=== PATIENT | female | born 1980 | race Caucasian/White ===

== ENCOUNTER 2017-05-30 19:26 | Emergency (ER) | payer SELFPAY ==
[2017-05-30 19:37] VITALS: BP 133/93; PULSE 72; TEMP 98; BMI 34.9
[2017-05-30] MEDS ORDERED: KETOROLAC TROMETHAMINE 15 MG/ML VIAL IM ONE (19:46)
[2017-05-30] MEDS ORDERED: KETOROLAC TROMETHAMINE 15 MG/ML VIAL ONE (19:50)
--- NOTE | 2017-05-30 19:53 | PDOC ---
History of Present Illness - General Chief Complaint: Pain, Acute Stated Complaint: HEADACHE X 3 DAYS Time Seen by Provider: 05/30/17 19:31 - History of Present Illness Initial Comments: 05/30/17 19:54 "Patient is a 36 F, who is otherwise healthy, and presents with headache for 3 days. Patient states that she has had a frontal headache for the past 3 days, rates consistent 5/10 of intensity. She states that her nasal congestion began first, following by a headache. She denies neck stiffness. Denies fevers. Denies thunderclap headache. Denies weakness/numbness/tingling in any extremity. Denies N/V. Denies worst headache of life. Last night she developed a dry cough and a sore throat which she attributes to sleeping with her mouth open. She also notes some right ear pain. 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 She states that she took Tylenol for sinus relief with temporary relief. Denies changes in vision. Denies dizziness, lightheadedness, and chest pain. No recent travel. " Past History - Past Medical History Allergies/Adverse Reactions: Allergies Allergy/AdvReac Type Severity Reaction Status Date / Time No Known Allergies Allergy Verified 05/30/17 19:28 Home Medications: Ambulatory Orders Amoxicillin/Potassium Clav [Augmentin 875-125 Tablet] 1 each PO BID #14 tablet 05/30/17 COPD: No Other medical history: DENIES - Suicide/Smoking/Psychosocial Hx Smoking History: Never smoked Have you smoked in the past 12 months: Yes Information on smoking cessation initiated: No Hx Alcohol Use: No Drug/Substance Use Hx: No Substance Use Type: None Review of Systems - Review of Systems Comments:: 05/30/17 19:55 "GENERAL/CONSTITUTIONAL: No fever or chills. No weakness. HEAD, EYES, EARS, NOSE AND THROAT: No change in vision. + right ear pain. No discharge. +sore throat. CARDIOVASCULAR: No chest pain. No shortness of breath. RESPIRATORY: +cough. No wheezing, or hemoptysis. GASTROINTESTINAL: No vomiting, diarrhea or constipation. GENITOURINARY: No dysuria, frequency, or change in urination. MUSCULOSKELETAL: No joint or muscle swelling or pain. No neck or back pain. SKIN: No rash NEUROLOGIC: + frontal headache. No vertigo, loss of consciousness, or change in strength/sensation. ENDOCRINE: No increased thirst. No abnormal weight change. HEMATOLOGIC/LYMPHATIC: No anemia, easy bleeding, or history of blood clots. ALLERGIC/IMMUNOLOGIC: No hives or skin allerg" *Physical Exam - Vital Signs Last Vital Signs Temp Pulse Resp BP Pulse Ox 98 F 72 16 133/93 100 05/30/17 19:28 05/30/17 19:28 05/30/17 19:28 05/30/17 19:28 05/30/17 19:28 - Physical Exam Comments: 05/30/17 19:47 "GENERAL: Awake, alert, and fully oriented, in no acute distress HEAD: No signs of trauma EYES: PERRLA, EOMI, sclera anicteric, conjunctiva clear ENT: TMs wnl. Mild tenderness over maxillary sinuses. Auricles normal inspection , hearing grossly normal, nares patent, oropharynx clear without exudates. Moist mucosa NECK: Nontender, no stepoffs, Normal ROM, supple, no lymphadenopathy, JVD, or masses LUNGS: Breath sounds equal, clear to auscultation bilaterally. No wheezes, and no crackles HEART: Regular rate and rhythm, normal S1 and S2, no murmurs, rubs or gallops ABDOMEN: Soft, nontender, normoactive bowel sounds. No guarding, no rebound. No masses EXTREMITIES: Normal range of motion, no edema. No clubbing or cyanosis. No cords, erythema, or tenderness NEUROLOGICAL: Cranial nerves II through XII intact. 5/5 strength and sensation in all extremities, Normal speech, normal gait SKIN: Warm, Dry, normal turgor, no rashes or lesions noted. " Medical Decision Making - Medical Decision Making 05/30/17 19:49 36 F with nasal congestion and headache. Likely viral syndrome. Symptoms consistent with rhinosinusitis. Pt's headache appears mild and there are no red flags in history concerning for meningitis/SAH/venous sinus thrombosis. Pt with normal neuro exam and mental status. - Toradol - F/u PMD Pt is well appearing, with normal vitals. Clinically stable for DC at this time. I discussed the physical exam findings, ancillary test results and final diagnoses with the patient. I answered all of the patient's questions. The patient was satisfied with the care received and felt comfortable with the discharge plan and treatment plan. The patient agrees to follow up with the primary care physician within 24-72 hours. *DC/Admit/Observation/Transfer Diagnosis at time of Disposition: Rhinosinusitis - Discharge Dispostion Disposition: HOME Condition at time of disposition: Stable - Prescriptions Prescriptions: Amoxicillin/Potassium Clav [Augmentin 875-125 Tablet] 1 each PO BID #14 tablet - Referrals - Patient Instructions Printed Discharge Instructions: DI for Sinusitis Additional Instructions: Take tylenol or motrin as needed for your headache. Drink plenty of fluids. You likely have a viral infection. However, if you have symptoms for longer than a week, shrimp picker the antibiotics at your pharmacy and take them as prescribed. If you experience worsening headache, vomiting, neck stiffness, fevers, or any other concerning symptoms, return to the ER immediately. Otherwise, follow up with your primary doctor within 1 week for a re-evaluation. - Post Discharge Activity Forms/Work/School Notes: Back to Work - Attestations Physician Attestion: 05/30/17 19:53 I, Dr. Ted Mcneal MD, attest that this document has been prepared under my direction and personally reviewed by me in its entirety. I further attest, that it accurately reflects all work, treatment, procedures and medical decision -making performed by me.
== END 2017-05-30 20:03 | disposition home or self-care (01) ==
LOC: FER 19:26
PROC: 3E0233Z Introduction of Anti-inflammatory into Muscle, Percutaneous Approach (ICD-10-PCS; principal; 2017-05-30)
DX: J32.9 Chronic sinusitis, unspecified (principal)
CPT/HCPCS: 99281-25